=== PATIENT | female | born 1935 | race Caucasian/White ===

== ENCOUNTER → 2016-08-30 | Outpatient (CLI) | payer OTHER | LOC: BHFA 11:00 | PROVIDERS: ATTEND Internal Medicine Cardiovascular Disease | DX: I48.91 Unspecified atrial fibrillation (principal) ==

== ENCOUNTER → 2016-09-17 | Outpatient (CLI) | payer OTHER | LOC: FIMAGING 11:07 | PROVIDERS: ATTEND Nurse Practitioner Adult Health | DX: J90 Pleural effusion, not elsewhere classified (principal); I50.1 Left ventricular failure, unspecified ==

== ENCOUNTER → 2016-09-17 | Outpatient (CLI) | payer OTHER | LOC: BHFA 10:00 | PROVIDERS: ATTEND Internal Medicine Interventional Cardiology | DX: I48.91 Unspecified atrial fibrillation (principal); I50.9 Heart failure, unspecified; R06.02 Shortness of breath ==

== ENCOUNTER 2016-10-09 07:42 | Day surgery (SDC) | payer OTHER ==
[2016-10-09] MEDS ORDERED: diphenhydrAMINE 25 MG CAP PO ONE ×2 (07:45→08:19)
[2016-10-09] MEDS ORDERED: DIAZEPAM 5 MG TAB PO ONE (07:45)
[2016-10-09] MEDS ORDERED: NS 1,000 ML IV ONE (07:45)
[2016-10-09] MEDS ORDERED: ASPIRIN EC 325 MG TAB PO ONE ×2 (07:45→08:20)
[2016-10-09] MEDS ORDERED: FAMOTIDINE 20 MG TAB PO ONE (07:45)
--- NOTE | 2016-10-09 08:17 | CPEKG ---
Heart Rate: 78 RR Interval: 769 QRSD Interval: 96 QT Interval: 388 QTC Interval: 442 QRS [place]: 118 T Wave [place]: 20 EKG Severity - ABNORMAL ECG - EKG Impression: ATRIAL FIBRILLATION, V-RATE 66-101 EKG Impression: LATERAL INFARCT, OLD Electronically Signed By: Francisco Zepeda 09-Oct-2016 12:01:26
[2016-10-09] MEDS ORDERED: FAMOTIDINE 20 MG TAB ONE (08:19)
[2016-10-09] MEDS ORDERED: DIAZEPAM 5 MG TAB ONE (08:20)
[2016-10-09 08:45] LABS: % IMMATURE GRANULYOCYTES 0.4 % (0.0-1.1); ABSOLUTE IMMATURE GRANULOCYTES 0.03 10^3/uL (0.00-0.10); ADD DIFF? NO; ADD MORPH? NO; ADD SCAN? NO; ATYPICAL LYMPHOCYTE FLAG 40 (0-99); FRAGMENT RBC FLAG 0 (0-99); HEMATOCRIT 37.8 % (38.0-47.0); HEMOGLOBIN 12.4 g/dL (12.6-16.3); LEFT SHIFT FLG 0 (0-99); LIPEMIA HEMOLYSIS FLAG 80 (0-99); MEAN CELL HEMOGLOBIN 31.8 pg (27.9-34.1); MEAN CELL HEMOGLOBIN CONCENTR. 32.8 g/dL (32.4-36.7); MEAN CELL VOLUME 96.9 fL (81.5-99.8); MEAN PLATELET VOLUME 11.3 fL (8.7-11.7); PLATELET CLUMPS FLAG 20 (0-99); PLATELET COUNT 185 10^3/uL (150-400); RED CELL DISTRIBUTION WIDTH 14.7 % (11.5-15.2)
[2016-10-09 08:57] LABS: ANION GAP 9 mEq/L (8-16); CALCIUM 9.8 mg/dL (8.5-10.4); CARBON DIOXIDE 30 mEq/l (22-31); CHLORIDE 101 mEq/L (97-110); CHOLESTEROL 145 mg/dL (140-220); CHOLESTEROL/HDL RATIO 3.37 RATIO (1.00-4.44); CREATININE 0.9 mg/dL (0.6-1.0); GLOMERULAR FILTRATION RATE > 60; GLUCOSE 95 mg/dL (70-100); HIGH DENSITY LIPOPROTEIN 43 mg/dL (40-85); LDL/HDL RATIO 1.84 RATIO (1.00-3.22); LOW DENSITY LIPOPROTEIN 79 mg/dL (80-100); MAGNESIUM 2.1 mg/dL (1.6-2.3); NON-HIGH DENSITY LIPOPROTEIN 102 mg/dL (90-129); POTASSIUM 3.8 mEq/L (3.5-5.2); SODIUM 140 mEq/L (134-144); TRIGLYCERIDE 119 mg/dL (35-135); VERY LOW DENSITY LIPOPROTEINS 23 mg/dL (8-25)
[2016-10-09] MEDS ORDERED: LIDOCAINE 1% 300 MG/30 ML SDV ONE (09:28)
[2016-10-09] MEDS ORDERED: fentaNYL 100 MCG/2 ML INJ ONE (09:29)
[2016-10-09] MEDS ORDERED: IOPAMIDOL (ISOVUE-370) 150 ML BTL IV ONE (09:29)
[2016-10-09] MEDS ORDERED: MIDAZOLAM 2 MG/2 ML VIAL ONE ×2 (09:29)
[2016-10-09 09:41] LABS: INR 1.3 (0.83-1.16)
[2016-10-09] MEDS ORDERED: HEPARIN 10,000 UNIT/10 ML MDV ONE (09:42)
[2016-10-09 09:44] LABS: PROTIME(PATIENT) 16.2 SEC (12.0-15.0)
[2016-10-09] MEDS ORDERED: NITROGLYCERIN 0.4 MG BTL SL PRN (10:36)
[2016-10-09] MEDS ORDERED: ONDANSETRON 4 MG/2 ML VIAL IVP PRN (10:36)
[2016-10-09] MEDS ORDERED: ATROPINE SULFATE 1 MG/10 ML SYR IVP PRN (10:36)
--- NOTE | 2016-10-09 10:40 | PDDXCAT ---
Diagnostic Cath Note - . Date: 10/09/16 Supervising Appraiser: Manny Indication: other (Severe pulmonary hypertension heart failure with moderate mitral regurgitation) - Procedure Access: right wrist Procedure: left heart catheterization, coronary angiography, left ventriculogram , right heart catheterization - Materials Left Heart Cath size: 5F Left Heart Cath materials: pigtail, other (SiteSeer 4) Right Heart Cath size: 5F Right Heart Cath materials: PWP catheter - Findings-Left Heart Catheterization LM: Unobstructed LAD: Unobstructed LCX: Unobstructed RCA: Dominant: Unobstructed EDP: 12 mm of mercury LVEF: 65% Wall motion: Normal with no demonstrable mitral regurgitation - Findings-Right Heart Catheterization RA: 10 mm of mercury RV: 81 mm of mercury PA: 81/34 mm of mercury PAOP: 15 mm of mercury Complications: None Estimated blood loss: <50ml Closure method: TR Band Assessment: 1. Mild nonobstructive atherosclerosis. 2. Normal left ventricular systolic function with normal left-sided filling pressures. 3. Severe pulmonary hypertension. Patient Problems: Problems Problem Status Onset Pulmonary hypertension Acute
== END 2016-10-09 14:15 | disposition home or self-care (01) ==
LOC: FCATH 07:42
PROVIDERS: ATTEND Internal Medicine Interventional Cardiology
DX: I27.2 Other secondary pulmonary hypertension (principal); I11.0 Hypertensive heart disease with heart failure; I50.33 Acute on chronic diastolic (congestive) heart failure; J44.9 Chronic obstructive pulmonary disease, unspecified; I48.0 Paroxysmal atrial fibrillation; E78.5 Hyperlipidemia, unspecified; I34.0 Nonrheumatic mitral (valve) insufficiency; Z85.118 Personal history of other malignant neoplasm of bronchus and lung; Z99.81 Dependence on supplemental oxygen
CPT/HCPCS: 93005; 93460; C1769; J1644; J2250; J3010; Q9967

== ENCOUNTER 2017-08-14 10:17 | Inpatient (IN) | payer OTHER ==
--- NOTE | 2017-08-14 11:48 | CPEKG ---
Heart Rate: 76 RR Interval: 789 QRSD Interval: 100 QT Interval: 428 QTC Interval: 482 QRS [place]: 104 T Wave [place]: -18 EKG Severity - ABNORMAL ECG - EKG Impression: ATRIAL FIBRILLATION, V-RATE 54-84 EKG Impression: RIGHT AXIS DEVIATION EKG Impression: LOW VOLTAGE IN FRONTAL LEADS EKG Impression: BORDERLINE R WAVE PROGRESSION, ANTERIOR LEADS EKG Impression: NONSPECIFIC T ABNORMALITIES, ANTERIOR LEADS Electronically Signed By: Juliann Olivarez 14-Aug-2017 15:17:42
[2017-08-14 11:56] LABS: PLATELET COUNT 196 10^3/uL (150-400)
--- NOTE | 2017-08-14 11:56 | EDPHY ---
H & P Stated Complaint: SOB Time Seen by Provider: 08/14/17 11:20 HPI/ROS: CHIEF COMPLAINT: Shortness of breath HISTORY OF PRESENT ILLNESS: 82-year-old female with COPD and congestive heart failure presents with shortness of breath. She returned from vacation 1 week ago. Onset of gradually increasing shortness of breath 5 days ago. She is normally on oxygen 3 L by nasal cannula around the clock. Despite using her usual oxygen, she has felt short of breath with minimal exertion. This morning she started wheezing and became especially concerned. She has been using her home nebulizer as prescribed. No change in cough and no fever. REVIEW OF SYSTEMS: complete 10 point ROS negative except at noted in the HPI - Personal History Current Tetanus/Diphtheria Vaccine: Unsure Current Tetanus Diphtheria and Acellular Pertussis (TDAP): Unsure - Medical/Surgical History Hx Asthma: No Hx Chronic Respiratory Disease: Yes Hx Diabetes: No Hx Cardiac Disease: Yes Hx Renal Disease: No Hx Cirrhosis: No Hx Alcoholism: No Hx HIV/AIDS: No Hx Splenectomy or Spleen Trauma: No Other PMH: COPD, lung CA, LL Lobectomy, afib, CHF - Social History Smoking Status: Former smoker Drug Use: None - Physical Exam Exam: General Appearance: Alert, pleasant Eyes: Pupils equal and round, no conjunctival pallor or injection ENT, Mouth: Mucous membranes moist Neck: Normal inspection Respiratory: Normal respiratory rate, decreased breath sounds throughout, no wheezing Cardiovascular: irregularly irregular rate and rhythm Gastrointestinal: Abdomen is soft and nontender Neurological: A&O, nonfocal exam Skin: Warm and dry, no rash Extremities: Nontender, no pedal edema Psychiatric: Mood and affect normal Constitutional: Initial Vital Signs Temperature (C) 36.7 C 08/14/17 10:28 Heart Rate 79 08/14/17 10:28 Respiratory Rate 16 08/14/17 10:28 Blood Pressure 117/85 H 08/14/17 10:28 O2 Sat (%) 94 08/14/17 10:28 O2 Delivery Mode Nasal Cannula O2 (L/minute) 3 Allergies/Adverse Reactions: No Known Allergies Allergy (Unverified 08/14/17 10:26) Home Medications: Medication Instructions Recorded Budesonide/Formoterol Fumarate 1 puffs IH BID 10/09/16 [Symbicort 80-4.5 Mcg Inhaler] Carvedilol [Coreg (*)] 6.25 mg PO BIDMEAL 10/09/16 Multivitamins [Multivitamin (*)] 1 each PO DAILY 10/09/16 Pravastatin Sodium 20 mg PO DAILY18 10/09/16 Tiotropium Inhaler [Spiriva 1 puffs IH DAILY 10/09/16 Handihaler] Warfarin Sodium [Coumadin 1MG (*)] 1 mg PO TUFR@10/09/16 Albuterol [Proventil Inhaler HFA 1 - 2 puffs IH DAILY PRN 08/14/17 (*)] Spironolactone [Aldactone 25 MG 25 mg PO DAILY 08/14/17 (*)] Torsemide [Demadex] 60 mg PO DAILY 08/14/17 Warfarin Sodium [Coumadin 2MG (*)] 2 mg PO SUMOWETHSA@08/14/17 Azithromycin 250 mg PO DAILY #3 tablet 08/16/17 guaiFENesin [Mucinex 600 MG (*)] 1,200 mg PO BID tab.er 08/16/17 predniSONE 40 mg PO DAILY #12 tablet 08/16/17 Medical Decision Making - Diagnostics EKG Interpretation: EKG interpreted by me reveals atrial fibrillation, ventricular rate 76, poor R- wave progression, no ST or T segment changes. Imaging Results: Chest X-Ray 08/14/17 11:08 Impression: 1. Chronic, improved, small left pleural effusion and left basilar compressive atelectasis. 2. Chronic airways disease. 3. Cardiomegaly. No failure. Imaging: I viewed and interpreted images myself ED Course/Re-evaluation: This patient presents with a one-week history of progressively increasing shortness of breath. Oxygen saturation 94% on her usual 3 L oxygen by nasal cannula. Stat EKG reveals no evidence of ischemia. Chest x-ray is unremarkable ; no evidence of pulmonary edema or pneumonia. Laboratory tests reviewed BNP is elevated at 2200. Discussed with the patient, she is taking her torsemide and spironolactone as prescribed and has not had any weight gain or leg swelling over the last week. She would like to go home if possible. The patient ambulated throughout the emergency department and oxygen saturation decreased to 85% on room air. She felt quite dyspneic and felt unsafe going home. Lasix 20 mg IV given for probable pulmonary edema. No wheezing on exam, query component of COPD exac. She will be admitted to the hospitalist service for further treatment. Differential Diagnosis: Differential diagnosis includes though it is not limited to pneumonia, pneumothorax, pulmonary embolism, aortic dissection, pericarditis, acute coronary syndrome. - Data Points Laboratory Results: Laboratory Results 08/14/17 11:50 08/14/17 11:50 Medications Given: Discontinued Medications Albuterol/Ipratropium (Duoneb) 3 ml IH EDNOW ONE Stop: 08/14/17 11:58 Last Admin: 08/14/17 12:02 Dose: 3 ml Albuterol/Ipratropium (Duoneb) 3 ml IH QID ALEXANDRE Stop: 02/10/18 15:59 Last Admin: 08/16/17 09:51 Dose: 3 ml Azithromycin (Zithromax) 250 mg PO DAILY ALEXANDRE PRN Reason: Protocol Stop: 09/14/17 08:59 Last Admin: 08/16/17 08:07 Dose: 250 mg Azithromycin (Zithromax) 500 mg PO ONCE ONE PRN Reason: Protocol Stop: 08/14/17 18:01 Last Admin: 08/14/17 18:11 Dose: 500 mg Budesonide/Formoterol Fumarate (Symbicort 80-4.5 Mcg Inhaler) 1 puffs IH BID ALEXANDRE Stop: 02/10/18 20:59 Last Admin: 08/16/17 09:51 Dose: 1 puffs Carvedilol (Coreg) 6.25 mg PO BIDMEAL ALEXANDRE Stop: 02/10/18 17:59 Last Admin: 08/16/17 08:05 Dose: 6.25 mg Furosemide (Lasix Injection) 20 mg IVP EDNOW ONE Stop: 08/14/17 13:31 Last Admin: 08/14/17 13:42 Dose: 20 mg Guaifenesin (Mucinex) 1,200 mg PO BID ALEXANDRE Stop: 02/10/18 20:59 Last Admin: 08/16/17 08:10 Dose: 1,200 mg Methylprednisolone Sodium Succinate (Solu-Medrol) 125 mg IVP EDNOW ONE Stop: 08/14/17 11:58 Last Admin: 08/14/17 12:45 Dose: 125 mg Methylprednisolone Sodium Succinate (Solu-Medrol) 40 mg IVP Q8HRS ALEXANDRE Stop: 02/10/18 21:59 Last Admin: 08/16/17 05:18 Dose: 40 mg Pravastatin Sodium (Pravachol) 20 mg PO DAILY18 [facility] Stop: 02/10/18 17:59 Last Admin: 08/15/17 18:03 Dose: 20 mg Prednisone (Prednisone) 40 mg PO ONCE ONE Stop: 08/16/17 09:04 Last Admin: 08/16/17 10:59 Dose: 40 mg Spironolactone (Aldactone) 25 mg PO DAILY [facility] Stop: 02/11/18 08:59 Last Admin: 08/16/17 08:07 Dose: 25 mg Torsemide (Demadex) 60 mg PO DAILY [facility] Stop: 02/11/18 08:59 Last Admin: 08/16/17 08:05 Dose: 60 mg Warfarin Sodium (Coumadin) 1 mg PO TUFR@21 [facility] Stop: 02/11/18 20:59 Last Admin: 08/15/17 21:16 Dose: 1 mg Warfarin Sodium (Coumadin) 2 mg PO SUMOWETHSA@21 [facility] Stop: 02/10/18 20:59 Last Admin: 08/14/17 20:16 Dose: 2 mg Departure - Departure Disposition: [facility] Inpatient Acute Clinical Impression: Dyspnea Qualifiers: Dyspnea type: shortness of breath Qualified Code(s): R06.02 - Shortness of breath Condition: Fair
[2017-08-14] MEDS ORDERED: IPRATROPIUM/ALBUTEROL 3 ML DEYVIAL IH ONE (11:57)
[2017-08-14] MEDS ORDERED: methylPREDNISolone SOD SUCC 125 MG/2 ML VIAL IVP ONE (11:57)
[2017-08-14 13:00] LABS: INR 2.11 (0.83-1.16); PROTIME(PATIENT) 23.7 SEC (12.0-15.0)
[2017-08-14] MEDS ORDERED: FUROSEMIDE 20 MG/2 ML VIAL IVP ONE (13:30)
[2017-08-14] MEDS ORDERED: ALBUTEROL 3 ML DEYVIAL IH PRN (14:28)
[2017-08-14] MEDS ORDERED: ONDANSETRON 4 MG/2 ML VIAL IVP PRN (14:28)
[2017-08-14] MEDS ORDERED: ONDANSETRON DISINTEGRATING 4 MG TAB PO PRN (14:28)
[2017-08-14] MEDS ORDERED: oxyCODONE IR 5 MG TAB PO PRN (14:28)
[2017-08-14] MEDS ORDERED: AZITHROMYCIN 250 MG TAB PO ONE ×2 (14:28→18:00)
[2017-08-14] MEDS ORDERED: ACETAMINOPHEN 325 MG TAB PO PRN (14:28)
[2017-08-14] MEDS: IPRATROPIUM/ALBUTEROL 3 ML DEYVIAL IH SCH ×2 (15:02→21:04)
--- NOTE | 2017-08-14 15:05 | GHP ---
[f rep st] HISTORY AND PHYSICAL DATE OF ADMISSION: 08/14/2017 CHIEF COMPLAINT: Shortness of breath. HISTORY OF PRESENT ILLNESS: This is an 82-year-old female with AFib, as well as CHF and COPD, who pr esents with worsening dyspnea. It started about a week ago. She had been doing a canoeing trip in [facility]. Since then, she has gotten progressively more shortness of breath. She has some mild sputum production, although she is denying a cough. Her sputum production has increased over e last week. She has not had any fevers. No other sick contacts. She has not had any swelling in h er legs. Her weight is actually 1 kg down from the last recorded weight that we have. Shortness of breath is better when she is not moving at all. PAST MEDICAL/SURGICAL HISTORY: 1. Atrial fibrillation. 2. CHF, diastolic, with right-sided heart failure. RVSP of 88. 3. COPD/chronic respiratory failure on 2.5 to 3 L of oxygen, followed by Dr. Riley. 4. Left lower lobe resection due to cancer. She did not require any ongoing chemotherapy or radiati on after this. MEDICATIONS: Please see medication reconciliation. ALLERGIES: No known drug allergies. SOCIAL HISTORY: She quit tobacco 25 years ago. She occasionally drinks alcohol. FAMILY HISTORY: Mother had COPD. REVIEW OF SYSTEMS: 10-point review of systems is conducted and is negative except per HPI. PHYSICAL EXAMINATION: VITAL SIGNS: Blood pressure 119/75, heart rate 73, respiration rate 18, satti ng 93% on 4 L. Temperature is 36.7. GENERAL: The patient is a pleasant female, who is somewhat dys pneic. Otherwise alert and oriented. Accompanied by her . HEENT: Shows her to be normoceph alic, atraumatic. CARDIOVASCULAR: Shows her to be irregularly irregular. There are no murmurs, rub s, or gallops. PULMONARY: Shows her to be in mild respiratory distress. She has markedly diminishe d breath sounds bilaterally. She has scant expiratory wheezes. ABDOMEN: Soft, nontender, nondisten ded. SKIN: Shows no rash. : Shows no Babcock. NEUROLOGIC: Shows her to be alert and oriented x3 . She is moving all extremities. PSYCHIATRIC: Shows normal mood and affect. LABORATORIES: CBC is relatively unremarkable. INR is 2.1. Basic metabolic panel shows bicarb of 25 , creatinine is 0.9. DATA: 1. I personally viewed and interpreted her EKG. This shows atrial fibrillation. She has T-wave inv ersion in lead III. She has right axis deviation, slow R-wave progression. 2. Chest x-ray, which I personally viewed and interpreted, shows hyperexpanded lungs. She has a chr onic left base pleural effusion. She has cardiomegaly. IMPRESSION AND PLAN: 1. [id number] hypoxic respiratory failure: I suspect chronic obstructive pulmonary disease mo re than congestive heart failure. She did receive diuretics as well as steroids in the emergency dep artment. We will continue steroids, nebulizers, azithromycin, Mucinex. I note that her weight is sl ightly down. 2. Chronic obstructive pulmonary disease, acute on chronic, with exacerbation: Treat as above. Con tinue her budesonide/formoterol. Hold Spiriva while she is getting DuoNeb scheduled. 3. Atrial fibrillation: Currently rate controlled. Continue her carvedilol as well as warfarin. 4. Congestive heart failure: She appears euvolemic to me. I will continue her home torsemide. Thi s is primarily diastolic with right-sided heart failure. She follows with Dr. Zepeda. 5. Deep venous thrombosis risk: She is low. She is on warfarin. 6. Code status is full. 7. Admission status: We will admit to inpatient given her degree of diminished air movement bilater ally. /[id number]/MODL
--- NOTE | 2017-08-14 15:42 | ASMTCMCOM ---
CM Note CM Note Notes: Patient admitted via ED for c/o increasing dyspnea. She and her returned from a paddle boat tour of the [employer] about a week ago and she states she has been getting increasingly sob. She and her live independently at [place]. No needs anticipated at this time. CM available should needs arise. Plan: Likely home without needs. Date Signed: 08/14/2017 03:41 PM Electronically Signed By:Maya Babcock RN
--- NOTE | 2017-08-14 17:32 | PDMN ---
Medical Necessity Medical necessity: Patient meets inpatient criteria per physician note and MCG M -100 COPD ([id number] hypoxic respiratory failure, more likely COPD; sat 91% on 3.5 LPM O2, worsening dyspnea and increased sputum production; history atrial fib, CHF/diastolic w/ R heart failure, COPD/chronic resp failure, on 2.5- 3 L of O2 baseline; LLL lung resection d/t cancer; anticipated LOS > 2 midnights for ongoing IV steroids, antibiotics, freq nebs, increase in baseline supplemental oxygen.)
[2017-08-14] MEDS: CARVEDILOL 6.25 MG TAB PO SCH (18:11)
[2017-08-14] MEDS: PRAVASTATIN SODIUM 20 MG TAB PO SCH (18:11)
[2017-08-14] MEDS: guaiFENesin 600 MG TAB.ER PO SCH (20:16)
[2017-08-14] MEDS ORDERED: WARFARIN SODIUM 2 MG TAB PO SCH (21:00)
[2017-08-14] MEDS: BUDESONIDE/FORMOTEROL 80/4.5 60 PUFFS/MDI IH SCH (21:04)
[2017-08-14] MEDS: methylPREDNISolone SOD SUCC 40 MG/ML VIAL IVP SCH (23:13)
[2017-08-15 05:21] LABS: PLATELET COUNT 209 10^3/uL (150-400)
[2017-08-15] MEDS: methylPREDNISolone SOD SUCC 40 MG/ML VIAL IVP SCH ×3 (05:44→21:16)
[2017-08-15 05:49] LABS: INR 2.13 (0.83-1.16); PROTIME(PATIENT) 23.9 SEC (12.0-15.0)
[2017-08-15] MEDS: IPRATROPIUM/ALBUTEROL 3 ML DEYVIAL IH SCH ×4 (06:13→21:38)
[2017-08-15] MEDS: CARVEDILOL 6.25 MG TAB PO SCH ×2 (08:38→18:03)
[2017-08-15] MEDS: guaiFENesin 600 MG TAB.ER PO SCH ×2 (08:38→21:16)
[2017-08-15] MEDS: AZITHROMYCIN 250 MG TAB PO SCH (08:38)
[2017-08-15] MEDS: SPIRONOLACTONE 25 MG TAB PO SCH (08:38)
[2017-08-15] MEDS: TORSEMIDE 20 MG TAB PO SCH (08:59)
[2017-08-15] MEDS: BUDESONIDE/FORMOTEROL 80/4.5 60 PUFFS/MDI IH SCH ×2 (09:12→21:35)
--- NOTE | 2017-08-15 13:34 | HOSPPROG ---
Hospitalist Progress Note Assessment/Plan: Patient is an 82-year-old female with history of AFib and heart failure who presented the emergency room with worsening dyspnea. Had started about a week ago. Today is my 1st encounter with the patient. Chart reviewed. Discussed her care with Dr Garcia who admitted her. * acute on chronic hypoxemic respiratory failure -likely has underlying COPD more than heart failure -on steroids, nebulizers and azithromycin -reviewed chest xray which shows nothing acute * COPD acute on chronic with exacerbation * atrial fibrillation -rate controlled with Coreg, INR is 2.13 * CHF -on torsemide -patient appears euvolemic *DVT prophylaxis: on oral anticoagulation *Plan: will see how she does tomorrow, will likely dc if stable. Subjective: Shakila says she is feeling overall better since admission. Objective: Vital Signs Temp Pulse Resp BP Pulse Ox 36.3 C 74 16 110/62 96 08/15/17 11:33 08/15/17 11:33 08/15/17 11:33 08/15/17 11:33 08/15/17 11:33 Microbiology 08/14/17 17:28 Respiratory Panel (PCR) - Final Nasal, Sinus - [place] Viral Transport No Organism Detected Laboratory Results 08/15/17 04:33 08/15/17 04:33 08/14/17 08/15/17 08/16/17 05:59 05:59 05:59 Intake Total 450 Balance 450 PT 23.9 SEC (12.0-15.0) H 08/15/17 04:33 INR 2.13 (0.83-1.16) H 08/15/17 04:33 - Physical Exam Constitutional: other (slender) Eyes: PERRL Ears, Nose, Mouth, Throat: hearing normal Cardiovascular: irregularly irregular Respiratory: no respiratory distress, reduced air movement (bases) Gastrointestinal: normoactive bowel sounds Skin: warm Musculoskeletal: full muscle strength Neurologic: AAOx3 Psychiatric: interacting appropriately ICD10 Worksheet Patient Problems: Problems Problem Status Onset Dyspnea Acute Pulmonary hypertension Acute
[2017-08-15] MEDS: PRAVASTATIN SODIUM 20 MG TAB PO SCH (18:03)
[2017-08-15] MEDS ORDERED: WARFARIN SODIUM 1 MG TAB PO SCH (21:00)
[2017-08-16] MEDS: methylPREDNISolone SOD SUCC 40 MG/ML VIAL IVP SCH (05:18)
[2017-08-16] MEDS: IPRATROPIUM/ALBUTEROL 3 ML DEYVIAL IH SCH ×2 (06:08→09:51)
[2017-08-16] MEDS: TORSEMIDE 20 MG TAB PO SCH (08:05)
[2017-08-16] MEDS: CARVEDILOL 6.25 MG TAB PO SCH (08:05)
[2017-08-16] MEDS: SPIRONOLACTONE 25 MG TAB PO SCH (08:07)
[2017-08-16] MEDS: AZITHROMYCIN 250 MG TAB PO SCH (08:07)
[2017-08-16] MEDS: guaiFENesin 600 MG TAB.ER PO SCH (08:10)
[2017-08-16 08:12] VITALS: BP 127/70
--- NOTE | 2017-08-16 08:57 | HOSPPROG ---
Hospitalist Progress Note Assessment/Plan: Patient is an 82-year-old female with history of AFib and heart failure who presented the emergency room with worsening dyspnea. Had started about a week ago. * acute on chronic hypoxemic respiratory failure -back to her baseline -likely has underlying COPD more than heart failure -on steroids, nebulizers and azithromycin -reviewed chest xray which shows nothing acute * COPD acute on chronic with exacerbation -on 3 liters which is her baseline * atrial fibrillation -rate controlled with Coreg,recent INR is 2.13 * CHF -on torsemide -patient appears euvolemic *DVT prophylaxis: on oral anticoagulation *Plan: dc home, check an INR prior to dc Subjective: Shakila is feeling well and ready for dc Objective: Vital Signs Temp Pulse Resp BP Pulse Ox 36.4 C 73 18 127/70 H 96 08/16/17 07:29 08/16/17 08:05 08/16/17 07:29 08/16/17 08:05 08/16/17 07:29 Microbiology 08/14/17 17:28 Respiratory Panel (PCR) - Final Nasal, Sinus - [place] Viral Transport No Organism Detected Laboratory Results 08/15/17 04:33 08/15/17 04:33 08/15/17 08/16/17 08/17/17 05:59 05:59 05:59 Intake Total 450 900 Balance 450 900 PT 23.9 SEC (12.0-15.0) H 08/15/17 04:33 INR 2.13 (0.83-1.16) H 08/15/17 04:33 - Physical Exam Constitutional: no apparent distress, appears nourished, not in pain Eyes: PERRL Ears, Nose, Mouth, Throat: hearing normal Cardiovascular: regular rate and rhythym Respiratory: no respiratory distress, reduced air movement (bibasilar, poor expiratory phase) Skin: warm Musculoskeletal: full muscle strength Neurologic: AAOx3 Psychiatric: interacting appropriately ICD10 Worksheet Patient Problems: Problems Problem Status Onset Dyspnea Acute Pulmonary hypertension Acute
[2017-08-16] MEDS ORDERED: predniSONE 20 MG TAB PO ONE (09:03)
--- NOTE | 2017-08-16 09:22 | GDS ---
[f rep st] DISCHARGE SUMMARY DISCHARGE DIAGNOSIS: 1. Acute on chronic hypoxemic respiratory failure. 2. Chronic obstructive pulmonary disease, acute on chronic with exacerbation. 3. Atrial fibrillation. 4. Congestion heart failure. BRIEF HISTORY: Briefly, the patient is an 82-year-old female with a history of atrial fibrillation, heart failure. She presented to the emergency room with worsening dyspnea. This started approximately a week ago. She was treated with IV steroids as well as antibiotics. Today, she is feeling markedly better. She will be discharged home and follow up with her forest pathologist, Dr. Ramsey Riley. HOSPITAL COURSE: 1. Acute on chronic hypoxemic respiratory failure. She is back to her baseline. 2. COPD. This was acute on chronic. She is back to her baseline of 3 L. 3. Atrial fibrillation, rate controlled on Coreg. Most recent INR is 3.46 4. CHF, on torsemide. She appears to be euvolemic. DISCHARGE CONDITION: Stable. Blood pressure is 127/70, respiratory rate is 18, pulse 73, temperature 36.4 Celsius, O2 saturations on room air are 96%. MEDICATIONS AT DISCHARGE: Please see the EMR. DISCHARGE INSTRUCTIONS: 1. To take the steroids as instructed. 2. Follow up with Dr. Kev Riley. 3. Return to the emergency room if she should develop any chest pain, shortness of breath, fevers or chills. 4. Hold Coumadin for next 2 days. Get INR checked on Friday and talk with her doctor about her Coumadin dose. /[id number]/MODL MTDD
[2017-08-16] MEDS: BUDESONIDE/FORMOTEROL 80/4.5 60 PUFFS/MDI IH SCH (09:51)
[2017-08-16 12:01] LABS: INR 3.46 (0.83-1.16); PROTIME(PATIENT) 34.6 SEC (12.0-15.0)
--- NOTE | 2017-08-16 13:54 | ASMTCMCOM ---
CM Note CM Note Notes: Pt medically stable for d/c, no CM d/c needs identified. Date Signed: 08/16/2017 01:53 PM Electronically Signed By:MONICA Marti
== END 2017-08-16 12:28 | disposition home or self-care (01) | DRG 189 ==
LOC: F3N 14:35
PROVIDERS: ADMIT Student in an Organized Health Care Education/Training Program; ATTEND Internal Medicine
DX: J96.21 Acute and chronic respiratory failure with hypoxia (principal); J44.1 Chronic obstructive pulmonary disease with (acute) exacerbation; I48.91 Unspecified atrial fibrillation; I50.30 Unspecified diastolic (congestive) heart failure; Z85.118 Personal history of other malignant neoplasm of bronchus and lung; Z90.2 Acquired absence of lung [part of]; Z99.81 Dependence on supplemental oxygen
CPT/HCPCS: 96374; J1940; J2920; J2930; J7512

== ENCOUNTER → 2017-12-20 | Outpatient (CLI) | payer OTHER | LOC: FIMAGING 10:08 | PROVIDERS: ATTEND Internal Medicine Critical Care Medicine | DX: J98.4 Other disorders of lung (principal); J43.2 Centrilobular emphysema; Z85.118 Personal history of other malignant neoplasm of bronchus and lung ==